=== PATIENT | male | born 1955 | race Caucasian/White ===

== ENCOUNTER 2023-01-28 16:21 | Emergency (ER) | payer MEDICARE, MEDICAID, SELFPAY ==
[2023-01-28 16:23] VITALS: BP 110/74; PULSE 81; RESP 14; TEMP 36.7; O2SAT 95; BMI 21.6
[2023-01-28 16:30] VITALS: BP 110/74
--- NOTE | 2023-01-28 16:30 | PC.NURSE ---
Dr. Collazo at [facility]
--- NOTE | 2023-01-28 16:31 | CT_ITS ---
PROCEDURE INFORMATION: Exam: CT Head Without Contrast Exam date and time: 01/28/2023 4:49 PM Age: 67 years old Clinical indication: Altered mental status/memory loss; Additional info: AMS TECHNIQUE: Imaging protocol: Computed tomography of the head without contrast. Radiation optimization: All CT scans at this facility use at least one of these dose optimization techniques: automated exposure control; mA and/or kV adjustment per patient size (includes targeted exams where dose is matched to clinical indication); or iterative reconstruction. REPORTING DATA: Count of CT and Cardiac NM exams in prior 12 months: This patient has received 0 known CTs and 0 known cardiac nuclear medicine studies in the 12 months prior to the current study. COMPARISON: No relevant prior studies available. FINDINGS: Brain: There are regions of vasogenic edema in the left frontal, right parietal, and temporal regions bilaterally. Locoregional mass effect contributes to 7 mm rightward midline structure shift. No acute parenchymal hemorrhage or extra-axial collection. Cerebral ventricles: Ventricles and CSF containing spaces are otherwise age-appropriate. No hydrocephalus. Paranasal sinuses: Visualized sinuses are unremarkable. No fluid levels. Mastoid air cells: Visualized mastoid air cells are well aerated. Bones/joints: Unremarkable. No acute fracture. Soft tissues: Unremarkable. IMPRESSION: Regions of moderate vasogenic edema. Findings are concerning for underlying parenchymal lesions. Locoregional mass effect contributes to 7 mm rightward midline structure shift. Evaluation with brain MRI is recommended.
--- NOTE | 2023-01-28 16:33 | [facility].EDGENADL ---
Discharge Plan Disposition Patient Disposition: Xfer Short-Term Hosp Condition: Fair Referrals Follow up/Referrals: Dwaine Wesley [Primary Care Provider] - See instructions Clinical Impressions Clinical Impression: Altered mental state, Vasogenic brain edema, Intracranial mass Stand Alone Forms Stand Alone Forms: Transfer Record - ED Instructions Patient Instructions: DI for Altered Mental Status Discharge ED Provider: Nakul Collazo General Adult HPI General Chief complaint: Altered Mental Status Stated complaint: ams Time Seen by Provider: 01/28/23 16:26 History of Present Illness HPI narrative: Patient is a 67-year-old male with unknown past medical history, unknown comorbidities who presents emergency department for evaluation of encephalopathy. Limited history obtained by EMS. Patient was found at home in his own feces, no obvious ingestants, no other history is able to be obtained at this time. Upon arrival patient is encephalopathic however conversational, slow to answer, protecting his airway. No other history is able to be obtained at this time Related Data Allergies Allergy/AdvReac Type Severity Reaction Status Date / Time No Known Allergies Allergy Verified 01/28/23 17:42 [facility] Disclaimer: The information contained in this section may have been updated after the patient was seen, as this information can be updated by other users. Social History Smoking Status: Current every day smoker alcohol intake: never current occupational status: other Travel in the last 8 weeks: None ROS Obtained: Yes unobtainable due to mental condition Physical Exam General General appearance: alert and in no apparent distress Head Head exam: atraumatic and normocephalic Eye Eye exam: Present PERRL and EOMI ENT ENT exam: Present mucous membranes moist Neck Neck exam: Present normal inspection and full ROM; Absent tenderness Chest Chest inspection: Present normal inspection and symmetric chest wall rise Respiratory Respiratory exam: Present normal lung sounds bilaterally; Absent respiratory distress Cardiovascular Cardiovascular exam: Present regular rate and normal rhythm Abdominal Exam Abdominal exam: Present soft; Absent tenderness Extremities Exam Extremities exam: Present normal inspection Neurological Exam Neurological exam: Present alert, CN II-XII intact and other (On oriented. Perseverating, unable to answer many questions. Unable to follow simple commands and less asked multiple times in different ways.); Absent motor sensory deficit Psychiatric Psychiatric exam: Present normal affect Skin Skin exam: Present warm, dry and other (Covered in feces) Medical Decision Making [place] Inquiry Pt receiving controlled substance: No Vital Signs: 01/28/23 16:23 01/28/23 16:30 01/28/23 17:10 Temperature 98.0 F Temperature Source Oral Pulse Rate 101 H Pulse Rate [Left] 81 Respiratory Rate 14 Blood Pressure 110/74 95/63 L Blood Pressure [Right Arm] 110/74 Blood Pressure Mean 81 69 Blood Pressure Mean [Right Arm] 86 02 Sat by Pulse Oximetry 95 99 Oxygen Delivery Method Room Air 01/28/23 17:11 01/28/23 17:30 01/28/23 18:00 Temperature 98.0 F Temperature Source Pulse Rate 77 78 89 Pulse Rate [Left] Respiratory Rate 16 Blood Pressure 100/65 L 101/66 L 101/66 L Blood Pressure [Right Arm] Blood Pressure Mean 74 75 Blood Pressure Mean [Right Arm] 02 Sat by Pulse Oximetry 100 99 Oxygen Delivery Method Room Air Lab Data Lab Results 01/28/23 16:31: VBG pH 7.37, VBG pCO2 40.9, VBG pO2 45.9 H, VBG HCO3 23.3, VBG Total CO2 24.6, VBG O2 Saturation 78.4 H, VBG Base Excess -1.9 01/28/23 16:40: WBC 7.4, RBC 3.49 L, Hgb 10.2 L, Hct 32.1 L, MCV 92.1, MCH 29.4, MCHC 31.9, RDW 14.2, Plt Count 251, MPV 8.6, Neut % (Auto) 68.1, Lymph % (Auto) 9.2 L, [place] % (Auto) 4.6, Eos % (Auto) 17.2 H, Baso % (Auto) 0.8, Neut # (Auto) 5.1, Lymph # (Auto) 0.
[2023-01-28 16:53] LABS: VBG Base Excess -1.9 mmol/L (-2.4-2.3); VBG HCO3 23.3 mmol/L (23-30); VBG Oxygen Saturation 78.4 % (50-70); VBG PCO2 40.9 mmol/L (35-51); VBG PH 7.37 mmol/L (7.31-7.41); VBG PO2 45.9 mmol/L (28-40); VBG Total CO2 24.6 mmol/L (23-27)
[2023-01-28 16:58] LABS: Basophils # 0.1 K/mm3 (0-0.2); Basophils % 0.8 % (0.1-2.0); Eosinophils # 1.3 K/mm3 (0.0-0.4); Eosinophils % 17.2 % (0.1-12.0); Hematocrit 32.1 % (42.0-52.0); Hemoglobin 10.2 g/dL (14.1-18.0); Lymphocytes # 0.7 K/mm3 (0.7-4.5); Lymphocytes % 9.2 % (10-50); Mean Corpuscular HGB Conc 31.9 g/dL (31.8-35.4); Mean Corpuscular Hemoglobin 29.4 pg (27.0-31.2); Mean Corpuscular Volume 92.1 fl (80-94); Mean Platelet Volume 8.6 fl (7.4-10.4); Monocytes # 0.3 K/mm3 (0.1-1.0); Monocytes % 4.6 % (1.7-9.3); Neutrophils # 5.1 K/mm3 (1.8-7.8); Neutrophils % 68.1 % (37.0-80.0); Platelet Count 251 K/mm3 (142-424); Red Blood Count 3.49 M/mm3 (4.60-6.20); Red Cell Distribution Width 14.2 % (11.5-17.5); White Blood Count 7.4 K/mm3 (4.8-10.8)
--- NOTE | 2023-01-28 17:00 | ECG_ITS ---
APPROVED REPORT Exam: Resting ECG HR:75 bpm ECG Measurements Heart Rate 75 AXES AR 164 P 78 QRSd 88 QRS -52 QT 379 T 76 QTc 407 Conclusion SINUS RHYTHM POSSIBLE RIGHT VENTRICULAR CONDUCTION DELAY [RSR (QR) IN V1/V2] LEFT ANTERIOR FASCICULAR BLOCK [QRS AXIS <= -45, QR IN I, RS IN II] ABNORMAL ECG UNCONFIRMED REPORT Electronically signed by : Tom Pastor MD 01/29/2023 08:43:51
[2023-01-28 17:01] LABS: Alanine Aminotransferase 22 U/L (12-78); Albumin Level 3.7 g/dl (3.5-5.0); Albumin/Globulin Ratio 0.8 (1.1-1.8); Alkaline Phosphatase 111 U/L (38-126); Anion Gap 18.3 mEq/L (5-15); Aspartate Amino Transferase 26 U/L (17-59); Bilirubin,Total 0.8 mg/dl (0.2-1.3); Blood Urea Nitrogen 27 mg/dl (9-20); Carbon Dioxide 23 mmol/L (22.0-30.0); Chloride 107 mmol/L (98-107); Creatinine Clearance Estimated 49 mL/min (50-200); Estimated Glomerular Filt Rate 60 ml/min (>60); GFR (African American) 73 ML/MIN (>60); Globulin 4.6 g/dL (1.3-3.2); Glucose 96 mg/dl (74-100); Magnesium 2.3 mg/dl (1.6-2.3); Potassium 4.3 mmoL/L (3.5-5.1); Sodium 144 mmol/L (136-145); Total Protein,Serum 8.3 g/dl (6.3-8.2)
[2023-01-28 17:03] LABS: Creatine Kinase < 20 U/L (55-170); Ethyl Alcohol < 10 mg/dl (0-10)
[2023-01-28 17:10] VITALS: BP 95/63; PULSE 101; O2SAT 99
[2023-01-28 17:11] VITALS: BP 100/65; PULSE 77; O2SAT 100
--- NOTE | 2023-01-28 17:15 | PC.NURSE ---
calling [facility] for possible transfer
[2023-01-28 17:17] LABS: Microscopic, Urine URINE MICROSCOPIC (MICROSCOPIC)
--- NOTE | 2023-01-28 17:18 | PC.NURSE ---
[facility] has accepted for flight transfer, they are on standby at this time until patient has been accepted
--- NOTE | 2023-01-28 17:18 | PC.NURSE ---
[facility] accepted on standby until pt is accepted to outside facility
[2023-01-28 17:20] LABS: Appearance,Urine CLEAR (Clear); Blood, Urine TRACE-I (Negative); Color,Urine ORANGE (Yellow); Glucose,Urine (UA) Negative (Negative); Ketones,Urine Negative (Negative); Leukocyte Esterase,Urine Negative (Negative); Nitrate,Urine POSITIVE (Negative); PH,Urine 5.5 (5.0-8.5); Protein,Urine 1+ (Negative); Specific Gravity, Urine 1.025 (1.005-1.030)
--- NOTE | 2023-01-28 17:22 | PC.NURSE ---
call made to radiology for disc to be made
[2023-01-28 17:30] VITALS: BP 101/66; PULSE 78; O2SAT 99
[2023-01-28 17:30] LABS: Barbiturates Screen,Urine Negative ng/ml (<200)
[2023-01-28 17:31] LABS: Benzodiazepines Screen,Urine Negative ng/ml (<200)
[2023-01-28 17:31] LABS: Thyroid Stimulating Hormone 1.02 uIU/mL (0.465-4.68)
[2023-01-28 17:32] LABS: Amphetamine/Metha Screen,Urine Negative ng/ml (<1000); Cannabinoid Screen,Urine Positive ng/ml (<50)
[2023-01-28 17:33] LABS: Cocaine Screen,Urine Negative ng/ml (<300)
[2023-01-28 17:34] LABS: Methadone Screen,Urine Negative ng/ml (<300); Opiate Screen,Urine Negative ng/ml (<300)
[2023-01-28 17:35] LABS: Phencyclidine Screen,Urine Negative ng/ml (<25)
[2023-01-28 17:37] LABS: Bacteria,Urine 1+ /lpf; Bilirubin,Urine 2+ (Negative); Squamous Epithelial Cell,Urine Occasional #/hpf (0-5); WBC,Urine Occasional #/hpf (0-3)
--- NOTE | 2023-01-28 17:39 | PC.NURSE ---
KERRY GUADARRAMA on phone with [facility]
--- NOTE | 2023-01-28 17:49 | PC.NURSE ---
[facility] landed and we are preparing for transfer
--- NOTE | 2023-01-28 17:54 | PC.NURSE ---
Dr. Collazo speaking with patients family
[2023-01-28 18:00] VITALS: BP 101/66; PULSE 89; RESP 16; TEMP 36.7
== END 2023-01-28 18:36 | disposition short-term general hospital (02) ==
PROVIDERS: Emergency Provider Emergency Medicine; PCP Pediatrics
DX: R41.82 Altered mental status, unspecified (principal); G93.6 Cerebral edema; F17.200 Nicotine dependence, unspecified, uncomplicated
CPT/HCPCS: 70450; 80053; 80305; 81001; 82550; 82803; 83735; 84443; 85025; 93005; 96374; 99291